=== PATIENT | female | born 1935 | race Caucasian/White ===

== ENCOUNTER 2016-06-05 14:59 | Emergency (ER) | payer OTHER ==
--- NOTE | 2016-06-05 16:16 | DIAGNOSTIC IMAGING REPORT ---
PROCEDURE: CT HEAD WITHOUT CONTRAST INDICATION: SYNCOPE TECHNIQUE: Axial CT images were acquired through the head. Coronal and sagittal reformations were created. COMPARISON: None. FINDINGS: No intracranial hemorrhage or extraaxial fluid collections. Ventricles are normal in size, shape and position. There is no mass, mass effect or midline shift. The farrell-white matter differentiation is normal. There is no edema. The calvarium is intact. The paranasal sinuses and mastoid air cells are normally aerated. The extracranial soft tissues and orbits are normal. IMPRESSION: 1. No CT evidence of acute intracranial process. All CT scans at this facility use dose modulation, iterative reconstruction, and/or weight-based dosing when appropriate to reduce radiation dose to as low as reasonably achievable.
--- NOTE | 2016-06-05 16:17 | DIAGNOSTIC IMAGING REPORT ---
PROCEDURE: XR CHEST 1 VIEW INDICATION: SYNCOPE TECHNIQUE: Portable AP view 03:30 p.m. COMPARISON: Chest 06/22/2008 FINDINGS: Lungs are clear. Heart and mediastinum are normal. Thorax is normal. IMPRESSION: 1. No change, no acute disease
--- NOTE | 2016-06-05 18:28 | ED NURSING NOTES ---
Clinical Report - Nurses [facility] [address] [place] [address] 06/05/2016 15:00 Patient: SHIKHA WHITE TRIAGE Triage time 15:13. Acuity: LEVEL 3. Chief Complaint: SYNCOPE and (Pt found herself on the garage concrete floor, thinks she laid there for 7 hours, was able to get up, then went to bed on . night, decided to be seen today, it has been 1.5 days ago). Alert. No acute distress. SEPSIS SCREEN: Sepsis Screen. Negative (no infection suspected/documented). ANGEL LUIS COMA SCORE: Angel Luis Coma Scale: 15- eyes open spontaneously (4); best verbal response- oriented x 4 (5); best motor response- obeys commands (6). --15:29 Gail Mckinney R.N. 15:11 06/05/16. BP: 184/93. HR: 81. RR: 18. O2 saturation: 97%. Temp: 98 F. Pain level now: 06/17. --15:29 Gail Mckinney R.N. 15:10. --15:35 Gail Mckinney R.N. Weight: 83.9 kg stated. Height/Length: 66.5 inches Per Patient. BMI: 29.4. --15:15 Gail Mckinney R.N. Medications Verapamil HCl Oral 120 mg, 2x a day. --15:19 Gail Mckinney R.N. Trimaterene doesnt know dose, daily. --15:25 Gail Mckinney R.N. Simvastatin Oral (Tablet 10 mg) 1 tablet, daily. --15:25 Gail Mckinney R.N. Fluticasone Propionate Nasal (Suspension 50 mcg/act) 1 spray each nare, BID. --15:26 Gail Mckinney R.N. Loratadine Oral 10 mg, daily as needed. --15:27 Mckinney, Gail, R.N. PreserVision AREDS 2 Oral. --15:28 Gail Mckinney R.N. Meloxicam Oral. --15:28 Gail Mckinney R.N. Chlorthalidone Oral (Tablet 25 mg) 1 tablet, BID. --15:28 Gail Mckinney R.N. Vitamin D Oral. Vitamins/Minerals Oral. --15:29 Gail Mckinney R.N. Allergies LIsinopril. --15:16 Gail Mckinney R.N. History Arrived by private vehicle. Historian: patient. Accompanied by daughter. Primary physician (matilda). This started 1 1/2 days ago, on night. --15:29 Gail Mckinney R.N. SOCIAL HX: Former smoker. No alcohol use or drug use. FUNCTIONAL ASSESSMENT: Functional assessment: no impairments noted. FALL RISK ASSESSMENT: Fall risk assessment completed; pt states she has fallen 4 times this year. --15:33 Gail Mckinney R.N. PAST MEDICAL HX: ( Pt stopped smoking at age 21). SOCIAL HX: Alcohol use; consumes one glass of wine occasionally. --15:33 Gail Mckinney R.N. ( FAST EXAM NEGATIVE ON ARRIVAL TO ADMITTING DESK). --15:35 Gail Mckinney R.N. PROBLEMS: Dupuytrens disease. Hypertension. Hypercholesterolemia. Allergic Rhinitis. --15:15 Gail Mckinney R.N. ADDITIONAL SURGERIES: Hands and feet. Knee Surgery. --15:15 Gail Mckinney R.N. Interventions ID and allergy band on patient. To room. --15:29 Gail Mckinney R.N. NURSING PROGRESS NOTES 15:24 06/05/2016 Site #1 started via IV in the right forearm with an 20g angiocath, with aseptic technique and good blood return; one attempt. Blood drawn: rainbow set. Labeled in the presence of the patient and sent to the lab. Saline lock flushed with 10 mL saline. --15:34 Gail Mckinney R.N. 15:34 06/05/16. court monitor, pulse oximeter and NIBP monitor placed on patient; cardiac/vascular sonographer- Lead II and V1; monitor alarms on. Head of bed elevated. Patient identifiers checked. Call light placed in reach. Bed placed in lowest position. Patient ready for evaluation- chart flagged and ED physician notified. --15:34 Gail Mckinney R.N. 15:34 06/05/16. Patient transported to [place]. --15:34 Gail Mckinney R.N. Care transferred and report given (to NICKI Peralta). --15:41 Gail Mckinney R.N. 15:46 06/05/2016 Started bag #1 1000 mL IV Fluids IV NS (Saline); bolus of 500 mL over 30 minute(s) then at 125 mL/hr over 4 hour(s) via site #1 via IV pump. Allergies verified and confirmed 5 rights. IV patency established. IV site checked: no pain, redness, or swelling. IV flushed thoroughly pre- and post-medication administration. --15:46 Kathryn Wren R.N. 15:57 06/05/16. BP: 172/81 (regular adult cuff) taken on the left arm, while lying. HR: 77. RR: 18. O2 saturation: 99% on nasal cannula at 2 liters/minute. --15:57 Kathryn Wren R.N. 15:57 06/05/16. BP: 143/87 (regular adult cuff) taken on the left arm, while sitting. HR: 84. RR: 20. O2 saturation: 100% on nasal cannula at 2 liters/minute. --15:58 Kathryn Wren R.N. 15:58 06/05/16. BP: 151/78 (regular adult cuff) taken on the left arm, while standing. HR: 89. RR: 20. O2 saturation: 100% on nasal cannula at 2 liters/minute. --15:58 Kathryn Wren R.N. 16:08 06/05/16. Assisted patient to bedside commode and back to bed; tolerated well. Checked patient name and birthdate: patient confirmed. Clean catch urine collected with return of yellow-colored clear urine; sample sent to lab for urinalysis. Specimen labeled in the presence of the patient. --16:08 Kathryn Wren R.N. 17:11 06/05/16. BP: 175/89. HR: 80. RR: 18. O2 saturation: 99% on room air. --17:11 Kathryn Wren R.N. 18:09 06/05/2016 IV Fluids IV NS Discontinued: bag #1 discontinued upon discharge. Total amount infused: 700 mL. IV patency established. IV site checked: no pain, redness, or swelling. IV flushed thoroughly. --18:09 Kathryn Wren R.N. DISPOSITION / DISCHARGE 18:04 06/05/16. BP: 161/84. HR: 83. RR: 14. O2 saturation: 100% on nasal cannula at 2 liters/minute. Temp: 98.4 F (oral). --18:05 Kathryn Wren R.N. Departure time: 18:Jun 05 2016. Condition at departure: improved and stable. No learning barriers present. Discharge instructions provided and reviewed with the patient. Patient verbalized understanding. Written instructions provided in Moldovan. The patient was discharged by the physician. She was discharged home and accompanied by family. She left the Emergency Department in a wheelchair and via private vehicle. Family member driving. --14:37 Kathryn Wren R.N. 18:30 06/05/2016 Site #1 removed upon discharge. Catheter intact. Manual pressure and bandage applied. --14:38 Kathryn Wren R.N. Locked/Released at 06/06/2016 14:38 by Kathryn Wren R.N.
--- NOTE | 2016-06-05 18:28 | ED ORDER SUMMARY ---
..... Patient: SHIKHA WHITE OrderSheet [facility] VisitID: [id number] [address] [place] [address] 81y, F Registration Date/Time: 06/05/2016 ORDER SHEET Weight: 83.9 kg (stated) Allergies: LIsinopril GENERAL ORDERS: Chest 1V Urgent (15:06/05/2016 Irineo ABERNATHY) (Ack 15:32 Placido Diaz) (16:21 MCampbell) Mitten Stitcher (Continuous) (15:06/05/2016 Irineo ABERNATHY) (15:26 MWinterer R.N.) CT Head wo Cont Urgent (15:06/05/2016 Irineo ABERNATHY) (Ack 15:32 Placido Diaz) (15:45 MWinterer R.N.) CBC w Diff Urgent (15:06/05/2016 Irineo ABERNATHY) (Ack 15:32 Placido iDaz) (15:34 LSullivan R.N.) CMP Urgent (15:06/05/2016 Irineo ABERNATHY) (Ack 15:32 Placido Diaz) (15:34 LSullivan R.N.) UA-Culture if indicated Urgent (15:06/05/2016 Irineo ABERNATHY) (Ack 15:32 Placido Diaz) (16:08 MWinterer R.N.) PT with INR Urgent (15:06/05/2016 Irineo ABERNATHY) (Ack 15:32 Placido Diaz) (15:34 LSullivan R.N.) PTT Urgent (15:06/05/2016 Irineo ABERNATHY) (Ack 15:32 Placido Diaz) (15:34 LSullivan R.N.) Amylase Urgent (15:06/05/2016 Irineo ABERNATHY) (Ack 15:32 Placido Diaz) (15:34 LSullivan R.N.) Lipase Urgent (15:06/05/2016 Irineo ABERNATHY) (Ack 15:32 Placido Diaz) (15:34 LSullivan R.N.) BNP Urgent (15:06/05/2016 Irineo ABERNATHY) (Ack 15:32 IJurca ER Tech1) (15:34 LSullivan R.N.) CPK Urgent (15:24 06/05/2016 Irineo ABERNATHY) (Ack 15:32 Placido ER Tech1) (15:34 LSullivan R.N.) Troponin-I Urgent (15:24 06/05/2016 Irineo ABERNATHY) (Ack 15:32 Placido ER Tech1) (15:34 LSullivan R.N.) EKG - ER Stat (15:24 06/05/2016 Irineo ABERNATHY) (Ack 15:32 Placido ER Tech1) (15:48 MWinterer R.N.) Vitals - Orthostatic (15:25 06/05/2016 Irineo ABERNATHY) (Ack 15:32 ANNABELLEurcricha ER Tech1) (15:58 MWinterer R.N.) TSH Urgent (16:52 06/05/2016 Irineo ABERNATHY) (Ack 16:53 ANNABELLEurca ER Tech1) (17:03 MWinterer R.N.) MEDICATION ORDERS: IV FLUIDS: IV NS : initial bolus 500 mL (1000 mL/hr), then 125 mL/hr for 4h (NOW); Urgent (15:23 06/05/2016 Irineo ABERNATHY) (Ack 15:26 MWinterer R.N.) (15:46 MWinterer R.N.) ORDER SHEET NOTES: [Electronically signed by Mannie Palma MD (19:04 06/05/2016)] [Electronically signed by Kathryn Wren R.N. (14:38 06/06/2016)] [Electronically locked/signed by Kathryn Wren R.N. (14:38 06/06/2016)]
--- NOTE | 2016-06-05 18:28 | ED ORDER SUMMARY ---
..... Patient: SHIKHA WHITE OrderSheet [facility] VisitID: [id number] [address] [place] [address] 81y, F Registration Date/Time: 06/05/2016 ORDER SHEET Weight: 83.9 kg (stated) Allergies: LIsinopril GENERAL ORDERS: Chest 1V Urgent (15:06/05/2016 Irineo ABERNATHY) (Ack 15:32 Placido Diaz) (16:21 MCampbell) Tafe Registrar (Continuous) (15:06/05/2016 Irineo ABERNATHY) (15:26 MWinterer R.N.) CT Head wo Cont Urgent (15:06/05/2016 Irineo ABERNATHY) (Ack 15:32 Placido Diaz) (15:45 MWinterer R.N.) CBC w Diff Urgent (15:06/05/2016 Irineo ABERNATHY) (Ack 15:32 Placido Diaz) (15:34 LSullivan R.N.) CMP Urgent (15:06/05/2016 Irineo ABERNATHY) (Ack 15:32 Placido Diaz) (15:34 LSullivan R.N.) UA-Culture if indicated Urgent (15:06/05/2016 Irineo ABERNATHY) (Ack 15:32 Placido Diaz) (16:08 MWinterer R.N.) PT with INR Urgent (15:06/05/2016 Irineo ABERNATHY) (Ack 15:32 Placido Diaz) (15:34 LSullivan R.N.) PTT Urgent (15:06/05/2016 Irineo ABERNATHY) (Ack 15:32 Placido Diaz) (15:34 LSullivan R.N.) Amylase Urgent (15:06/05/2016 Irineo ABERNATHY) (Ack 15:32 Placido Diaz) (15:34 LSullivan R.N.) Lipase Urgent (15:06/05/2016 Irineo ABERNATHY) (Ack 15:32 Placido Diaz) (15:34 LSullivan R.N.) BNP Urgent (15:06/05/2016 Irineo ABERNATHY) (Ack 15:32 IJurca ER Tech1) (15:34 LSullivan R.N.) CPK Urgent (15:24 06/05/2016 Irineo ABERNATHY) (Ack 15:32 Placido ER Tech1) (15:34 LSullivan R.N.) Troponin-I Urgent (15:24 06/05/2016 Irineo ABERNATHY) (Ack 15:32 Placido ER Tech1) (15:34 LSullivan R.N.) EKG - ER Stat (15:24 06/05/2016 Irineo ABERNATHY) (Ack 15:32 Placido ER Tech1) (15:48 MWinterer R.N.) Vitals - Orthostatic (15:25 06/05/2016 Irineo ABERNATHY) (Ack 15:32 ANNABELLEurcricha ER Tech1) (15:58 MWinterer R.N.) TSH Urgent (16:52 06/05/2016 Irineo ABERNATHY) (Ack 16:53 ANNABELLEurca ER Tech1) (17:03 MWinterer R.N.) MEDICATION ORDERS: IV FLUIDS: IV NS : initial bolus 500 mL (1000 mL/hr), then 125 mL/hr for 4h (NOW); Urgent (15:23 06/05/2016 Irineo ABERNATHY) (Ack 15:26 MWinterer R.N.) (15:46 MWinterer R.N.) ORDER SHEET NOTES: [Electronically signed by Mannie Palma MD (19:04 06/05/2016)] [Electronically signed by Kathryn Wren R.N. (14:38 06/06/2016)] [Electronically locked/signed by Kathryn Wren R.N. (14:38 06/06/2016)]
--- NOTE | 2016-06-05 18:28 | ED CLINICAL REPORT ---
Clinical Report - Physicians/Mid Levels [facility] [address] [place] [address] 06/05/2016 15:00 Patient: SHIKHA WHITE Time Seen: 15:22. Arrived- By private vehicle. Historian- patient. HISTORY OF PRESENT ILLNESS Chief Complaint: FALL. Location of injuries- right elbow (buttocks). The injury occurred 2 days ago. Occurred at home. Fell while standing and landed on a concrete surface. The patient complains of mild pain. No blow to the head or neck pain. The patient had loss of consciousness. (she is uncertain). REVIEW OF SYSTEMS The patient has had chills (when she was on the garage floor and through the morning after). No fever, calf pain, chest pain, cough or difficulty breathing. No pedal edema, palpitations, abdominal pain, black stools or bloody stools. No constipation, diarrhea, vomiting or urinary problems. The patient has had nausea. All systems otherwise negative, except as recorded above. PAST HISTORY PCP - Tamara. SOCIAL HISTORY Former smoker. No alcohol use or drug use. Is a local resident. She lives alone. FAMILY HISTORY Denies family medical history. ADDITIONAL NOTES The nursing notes have been reviewed. PHYSICAL EXAM Vital Signs: 06/05/2016 15:11 BP: 184/93. HR: 81. RR: 18. O2 saturation: 97%. Temp: 98 F. Pain level now: 5/10. Have been reviewed. Appearance: Alert. Oriented X3. No acute distress. Head: Head non-tender. No swelling of head. Eyes: Pupils equal, round and reactive to light. EOM intact. ENT: No dental injury. Pharynx normal. Neck: Painless ROM. Non-tender. No vertebral tenderness. CVS: Heart sounds normal. Respiratory: Breath sounds normal. Abdomen: No visible injury. Soft and nontender. Bowel sounds normal. No organomegaly. No mass. Back: No tenderness. ROM normal. Skin: The patient has multiple small superficial abrasions on the right elbow (bilateral buttocks). Extremities: Right elbow: small abrasion. Pelvis stable. Extremities atraumatic. No lower extremity edema. Neuro: Oriented X 3. No motor deficit. No sensory deficit. LABS, X-RAYS, AND EKG EKG: Normal sinus rhythm. Rate: 78. LBBB. Left axis deviation. EKG unchanged when compared with prior EKG. (22 Jun 2008). The study has been independently viewed by me. Chest X-ray: (PROCEDURE: XR CHEST 1 VIEW INDICATION: SYNCOPE TECHNIQUE: Portable AP view 03:30 p.m. COMPARISON: Chest 06/22/2008 FINDINGS: Lungs are clear. Heart and mediastinum are normal. Thorax is normal. IMPRESSION: 1. No change, no acute disease). The X-rays were interpreted by the radiologist and contemporaneously by me. CT Head: (IMPRESSION: 1. No CT evidence of acute intracranial process.). The study was interpreted by the radiologist and contemporaneously by me. Laboratory Tests: UA-Culture if indicated: (ELVIS: 06/05/2016 16:00) ( [facility] 06/05/2016 16:23) Final results Test Result Flag Units (Reference) URINE COLOR YELLOW URINE APPEARANCE CLEAR URINE GLUCOSE NEGATIVE (NEGATIVE) URINE BILIRUBIN NEGATIVE (NEGATIVE) URINE KETONE NEGATIVE (NEGATIVE) URINE SPECIFIC GRAVITY 1.020 (1.010-1.030) URINE PH 6.0 (5.0-8.0) URINE PROTEIN NEGATIVE (NEGATIVE) URINE UROBILINOGEN 0.2 EU/dL (0.2-1.0) URINE NITRITE NEGATIVE (NEGATIVE) URINE BLOOD NEGATIVE (NEGATIVE) URINE LEUK ESTERASE TRACE (NEGATIVE) URINE RBC NONE SEEN rbc/hpf (0-1) URINE WBC 5-10 wbc/hpf (0-1) URINE EPITHELIAL CELLS 5-10 EPI/hpf (0-5) URINE BACTERIA FEW (1+) (NONE SEEN) URINE COMMENT CULTURE INDICATED URINE CULTURES ARE SET-UP BASED ON THE FOLLOWING CRITERIA:POSITIVE NITRITEPOSITIVE LEUKOCYTE ESTERASEGREATER THAN 10 WHITE BLOOD CELLSMODERATE (2+) OR GREATER BACTERIA CBC w Diff: (ELVIS: 06/05/2016 15:10) ( [facility] 06/05/2016 15:34) Final results Test Result Flag Units (Reference) WHITE BLOOD COUNT 13.6 H K/uL (4.5-11.5) RED BLOOD COUNT 4.77 M/uL (4.00-5.20) HEMOGLOBIN 14.4 gm/dL (12.0-16.0) HEMATOCRIT 43.3 % (36.0-46.0) MEAN CELL VOLUME 91 fL (80-100) MEAN CORPUSCULAR HGB 30 pg (26-34) MEAN CORPUSCULAR HGB CONC 33 g/dL (31-37) RED CELL DISTRIBUTION WIDTH 13.4 % (11.6-14.8) PLATELET COUNT 232 K/uL (150-400) NEUTROPHIL % 79.4 H % (50-75) LYMPH % 13.1 L % (25-40) MONO % 7.2 % (3-14) EOSINOPHIL % 0.2 % (0-4) BASOPHIL % 0.1 % (0-2) PT with INR: (ELVIS: 06/05/2016 15:10) ( [facility] 06/05/2016 15:57) Final results Test Result Flag Units (Reference) INR 0.9 (0.8-1.2) Low Intensity Therapy: INR 1.5-2.0 PT range 18.5-23.1Mod.Intensity Therapy: INR 2.0-3.0 PT range 23.1-31.5High Intensity Therapy: INR 2.5-3.5 PT range 27.4-35.5High Intensity Therapy 2: INR 3.0-4.0 PT range 31.5-39.3 APTT 29 SECONDS (24-34) BNP: (ELVIS: 06/05/2016 15:10) ( [facility] 06/05/2016 15:58) Final results Test Result Flag Units (Reference) B-TYPE NATRIURETIC PEPTIDE 48.1 pg/ml (5-100) CMP: (ELVIS: 06/05/2016 15:10) ( [facility] 06/05/2016 16:29) Final results Test Result Flag Units (Reference) GLUCOSE 125 H mg/dL (70-110) BUN 22 H mg/dL (7-18) CREATININE 0.9 mg/dL (0.6-1.3) Estimated GFR >60 mL/min Estimated GFR- >60 mL/min Note: Persistent reduction over 3 months in eGFR<60 mL/min/1.73 m2 defines CKD. Patients with eGFR values>=60 mL/min/1.73 m2 may also have CKD if evidence ofpersistent proteinuria. Additional information may be foundat www.kidney.org. SODIUM 142 mmol/L (136-145) POTASSIUM 3.9 mmol/L (3.5-5.1) CHLORIDE 103 mmol/L (98-107) CARBON DIOXIDE 28 mmol/L (21-32) CALCIUM 9.1 mg/dL (8.5-10.1) TOTAL PROTEIN 7.6 g/dL (6.4-8.2) ALBUMIN 3.5 g/dL (3.3-5.0) BILIRUBIN, TOTAL 0.6 mg/dL (0.0-1.0) ALKALINE PHOSPHATASE 84 U/L (46-116) AST (SGOT) 73 H U/L (15-37) ALT (SGPT) 44 U/L (12-78) LIPASE 133 U/L (73-393) AMYLASE 69 U/L (25-115) CPK 1883 H U/L (24-260) TROPONIN I <0.05 ng/mL (0.00-1.5) TROPONIN REFERENCE RANGE:<0.1 NEGATIVE0.1-1.5 INDETERMINANT>1.5 POSITIVE CK-MB 7.6 H ng/mL (0.5-3.2) %CKMB 0.4 % (0.0-4.0) . PROGRESS AND PROCEDURES Course of Care: Patient is stable. Discussed case with on-call health care provider, (Yang). Reviewed test results and need for additional work-up. Agreed upon treatment plan and need for patient follow-up. Health care provider will see patient in office. Refers case to other health care provider. Patient/family counseled. Old medical records reviewed. Disposition: Discharged. Condition: stable. CLINICAL IMPRESSION Mild rhabdomyolysis Multiple superficial abrasions to the right and left buttocks and right elbow. Fall. INSTRUCTIONS (Keep your cell phone battery charged and keep the phone with you at all times until you're able to get a medical alert system as discussed.). Warnings: GENERAL WARNINGS: Return or contact your physician immediately if your condition worsens or changes unexpectedly, if not improving as expected, or if other problems arise. Your Current Medications: CONTINUE TAKING THE FOLLOWING MEDICATIONS: Chlorthalidone Oral : Tablet 25 mg, 1 tablet BID. Fluticasone Propionate Nasal : Suspension 50 mcg/act, 1 spray each nare BID. Understanding of the discharge instructions verbalized by patient and family. Follow-up with: Prakash Mcdonald MD, [facility], , [facility], [address] [place] [address] Follow up Wednesday as scheduled. Reason for referral: at noon to follow up on your recent fall. (Electronically signed by Mannie Palma MD 06/05/2016 19:04)
--- NOTE | 2016-06-05 18:28 | ED CLINICAL REPORT ---
Clinical Report - Physicians/Mid Levels [facility] [address] [place] [place] [address] 06/05/2016 15:00 Patient: SHIKHA WHITE Time Seen: 15:22. Arrived- By private vehicle. Historian- patient. HISTORY OF PRESENT ILLNESS Chief Complaint: FALL. Location of injuries- right elbow (buttocks). The injury occurred 2 days ago. Occurred at home. Fell while standing and landed on a concrete surface. The patient complains of mild pain. No blow to the head or neck pain. The patient had loss of consciousness. (she is uncertain). REVIEW OF SYSTEMS The patient has had chills (when she was on the garage floor and through the morning after). No fever, calf pain, chest pain, cough or difficulty breathing. No pedal edema, palpitations, abdominal pain, black stools or bloody stools. No constipation, diarrhea, vomiting or urinary problems. The patient has had nausea. All systems otherwise negative, except as recorded above. PAST HISTORY PCP - Tamara. SOCIAL HISTORY Former smoker. No alcohol use or drug use. Is a local resident. She lives alone. FAMILY HISTORY Denies family medical history. ADDITIONAL NOTES The nursing notes have been reviewed. PHYSICAL EXAM Vital Signs: 06/05/2016 15:11 BP: 184/93. HR: 81. RR: 18. O2 saturation: 97%. Temp: 98 F. Pain level now: 5/10. Have been reviewed. Appearance: Alert. Oriented X3. No acute distress. Head: Head non-tender. No swelling of head. Eyes: Pupils equal, round and reactive to light. EOM intact. ENT: No dental injury. Pharynx normal. Neck: Painless ROM. Non-tender. No vertebral tenderness. CVS: Heart sounds normal. Respiratory: Breath sounds normal. Abdomen: No visible injury. Soft and nontender. Bowel sounds normal. No organomegaly. No mass. Back: No tenderness. ROM normal. Skin: The patient has multiple small superficial abrasions on the right elbow (bilateral buttocks). Extremities: Right elbow: small abrasion. Pelvis stable. Extremities atraumatic. No lower extremity edema. Neuro: Oriented X 3. No motor deficit. No sensory deficit. LABS, X-RAYS, AND EKG EKG: Normal sinus rhythm. Rate: 78. LBBB. Left axis deviation. EKG unchanged when compared with prior EKG. (22 Jun 2008). The study has been independently viewed by me. Chest X-ray: (PROCEDURE: XR CHEST 1 VIEW INDICATION: SYNCOPE TECHNIQUE: Portable AP view 03:30 p.m. COMPARISON: Chest 06/22/2008 FINDINGS: Lungs are clear. Heart and mediastinum are normal. Thorax is normal. IMPRESSION: 1. No change, no acute disease). The X-rays were interpreted by the radiologist and contemporaneously by me. CT Head: (IMPRESSION: 1. No CT evidence of acute intracranial process.). The study was interpreted by the radiologist and contemporaneously by me. Laboratory Tests: UA-Culture if indicated: (ELVIS: 06/05/2016 16:00) ( [facility] 06/05/2016 16:23) Final results Test Result Flag Units (Reference) URINE COLOR YELLOW URINE APPEARANCE CLEAR URINE GLUCOSE NEGATIVE (NEGATIVE) URINE BILIRUBIN NEGATIVE (NEGATIVE) URINE KETONE NEGATIVE (NEGATIVE) URINE SPECIFIC GRAVITY 1.020 (1.010-1.030) URINE PH 6.0 (5.0-8.0) URINE PROTEIN NEGATIVE (NEGATIVE) URINE UROBILINOGEN 0.2 EU/dL (0.2-1.0) URINE NITRITE NEGATIVE (NEGATIVE) URINE BLOOD NEGATIVE (NEGATIVE) URINE LEUK ESTERASE TRACE (NEGATIVE) URINE RBC NONE SEEN rbc/hpf (0-1) URINE WBC 5-10 wbc/hpf (0-1) URINE EPITHELIAL CELLS 5-10 EPI/hpf (0-5) URINE BACTERIA FEW (1+) (NONE SEEN) URINE COMMENT CULTURE INDICATED URINE CULTURES ARE SET-UP BASED ON THE FOLLOWING CRITERIA:POSITIVE NITRITEPOSITIVE LEUKOCYTE ESTERASEGREATER THAN 10 WHITE BLOOD CELLSMODERATE (2+) OR GREATER BACTERIA CBC w Diff: (ELVIS: 06/05/2016 15:10) ( [facility] 06/05/2016 15:34) Final results Test Result Flag Units (Reference) WHITE BLOOD COUNT 13.6 H K/uL (4.5-11.5) RED BLOOD COUNT 4.77 M/uL (4.00-5.20) HEMOGLOBIN 14.4 gm/dL (12.0-16.0) HEMATOCRIT 43.3 % (36.0-46.0) MEAN CELL VOLUME 91 fL (80-100) MEAN CORPUSCULAR HGB 30 pg (26-34) MEAN CORPUSCULAR HGB CONC 33 g/dL (31-37) RED CELL DISTRIBUTION WIDTH 13.4 % (11.6-14.8) PLATELET COUNT 232 K/uL (150-400) NEUTROPHIL % 79.4 H % (50-75) LYMPH % 13.1 L % (25-40) MONO % 7.2 % (3-14) EOSINOPHIL % 0.2 % (0-4) BASOPHIL % 0.1 % (0-2) PT with INR: (ELVIS: 06/05/2016 15:10) ( [facility] 06/05/2016 15:57) Final results Test Result Flag Units (Reference) INR 0.9 (0.8-1.2) Low Intensity Therapy: INR 1.5-2.0 PT range 18.5-23.1Mod.Intensity Therapy: INR 2.0-3.0 PT range 23.1-31.5High Intensity Therapy: INR 2.5-3.5 PT range 27.4-35.5High Intensity Therapy 2: INR 3.0-4.0 PT range 31.5-39.3 APTT 29 SECONDS (24-34) BNP: (ELVIS: 06/05/2016 15:10) ( [facility] 06/05/2016 15:58) Final results Test Result Flag Units (Reference) B-TYPE NATRIURETIC PEPTIDE 48.1 pg/ml (5-100) CMP: (ELVIS: 06/05/2016 15:10) ( [facility] 06/05/2016 16:29) Final results Test Result Flag Units (Reference) GLUCOSE 125 H mg/dL (70-110) BUN 22 H mg/dL (7-18) CREATININE 0.9 mg/dL (0.6-1.3) Estimated GFR >60 mL/min Estimated GFR- >60 mL/min Note: Persistent reduction over 3 months in eGFR<60 mL/min/1.73 m2 defines CKD. Patients with eGFR values>=60 mL/min/1.73 m2 may also have CKD if evidence ofpersistent proteinuria. Additional information may be foundat [email or web address].org. SODIUM 142 mmol/L (136-145) POTASSIUM 3.9 mmol/L (3.5-5.1) CHLORIDE 103 mmol/L (98-107) CARBON DIOXIDE 28 mmol/L (21-32) CALCIUM 9.1 mg/dL (8.5-10.1) TOTAL PROTEIN 7.6 g/dL (6.4-8.2) ALBUMIN 3.5 g/dL (3.3-5.0) BILIRUBIN, TOTAL 0.6 mg/dL (0.0-1.0) ALKALINE PHOSPHATASE 84 U/L (46-116) AST (SGOT) 73 H U/L (15-37) ALT (SGPT) 44 U/L (12-78) LIPASE 133 U/L (73-393) AMYLASE 69 U/L (25-115) CPK 1883 H U/L (24-260) TROPONIN I <0.05 ng/mL (0.00-1.5) TROPONIN REFERENCE RANGE:<0.1 NEGATIVE0.1-1.5 INDETERMINANT>1.5 POSITIVE CK-MB 7.6 H ng/mL (0.5-3.2) %CKMB 0.4 % (0.0-4.0) . PROGRESS AND PROCEDURES Course of Care: Patient is stable. Discussed case with on-call health care provider, (Yang). Reviewed test results and need for additional work-up. Agreed upon treatment plan and need for patient follow-up. Health care provider will see patient in office. Refers case to other health care provider. Patient/family counseled. Old medical records reviewed. Disposition: Discharged. Condition: stable. CLINICAL IMPRESSION Mild rhabdomyolysis Multiple superficial abrasions to the right and left buttocks and right elbow. Fall. INSTRUCTIONS (Keep your cell phone battery charged and keep the phone with you at all times until you're able to get a medical alert system as discussed.). Warnings: GENERAL WARNINGS: Return or contact your physician immediately if your condition worsens or changes unexpectedly, if not improving as expected, or if other problems arise. Your Current Medications: CONTINUE TAKING THE FOLLOWING MEDICATIONS: Chlorthalidone Oral : Tablet 25 mg, 1 tablet BID. Fluticasone Propionate Nasal : Suspension 50 mcg/act, 1 spray each nare BID. Understanding of the discharge instructions verbalized by patient and family. Follow-up with: Prakash Mcdonald MD, [facility], , [facility], [address] [place] [address] Follow up Wednesday as scheduled. Reason for referral: at noon to follow up on your recent fall. (Electronically signed by Mannie Palma MD 06/05/2016 19:04)
--- NOTE | 2016-06-05 18:28 | ED NURSING NOTES ---
Clinical Report - Nurses [facility] [address] [place] [address] 06/05/2016 15:00 Patient: SHIKHA WHITE TRIAGE Triage time 15:13. Acuity: LEVEL 3. Chief Complaint: SYNCOPE and (Pt found herself on the garage concrete floor, thinks she laid there for 7 hours, was able to get up, then went to bed on . night, decided to be seen today, it has been 1.5 days ago). Alert. No acute distress. SEPSIS SCREEN: Sepsis Screen. Negative (no infection suspected/documented). ANGEL LUIS COMA SCORE: Angel Luis Coma Scale: 15- eyes open spontaneously (4); best verbal response- oriented x 4 (5); best motor response- obeys commands (6). --15:29 Gail Mckinney R.N. 15:11 06/05/16. BP: 184/93. HR: 81. RR: 18. O2 saturation: 97%. Temp: 98 F. Pain level now: 06/17. --15:29 Gail Mckinney R.N. 15:10. --15:35 Gail Mckinney R.N. Weight: 83.9 kg stated. Height/Length: 66.5 inches Per Patient. BMI: 29.4. --15:15 Gail Mckinney R.N. Medications Verapamil HCl Oral 120 mg, 2x a day. --15:19 Gail Mckinney R.N. Trimaterene doesnt know dose, daily. --15:25 Gail Mckinney R.N. Simvastatin Oral (Tablet 10 mg) 1 tablet, daily. --15:25 Gail Mckinney R.N. Fluticasone Propionate Nasal (Suspension 50 mcg/act) 1 spray each nare, BID. --15:26 Gail Mckinney R.N. Loratadine Oral 10 mg, daily as needed. --15:27 Mckinney, Gail, R.N. PreserVision AREDS 2 Oral. --15:28 Gail Mckinney R.N. Meloxicam Oral. --15:28 Gail Mckinney R.N. Chlorthalidone Oral (Tablet 25 mg) 1 tablet, BID. --15:28 Gail Mckinney R.N. Vitamin D Oral. Vitamins/Minerals Oral. --15:29 Gail Mckinney R.N. Allergies LIsinopril. --15:16 Gail Mckinney R.N. History Arrived by private vehicle. Historian: patient. Accompanied by daughter. Primary physician (matilda). This started 1 1/2 days ago, on night. --15:29 Gail Mckinney R.N. SOCIAL HX: Former smoker. No alcohol use or drug use. FUNCTIONAL ASSESSMENT: Functional assessment: no impairments noted. FALL RISK ASSESSMENT: Fall risk assessment completed; pt states she has fallen 4 times this year. --15:33 Gail Mckinney R.N. PAST MEDICAL HX: ( Pt stopped smoking at age 21). SOCIAL HX: Alcohol use; consumes one glass of wine occasionally. --15:33 Gail Mckinney R.N. ( FAST EXAM NEGATIVE ON ARRIVAL TO ADMITTING DESK). --15:35 Gail Mckinney R.N. PROBLEMS: Dupuytrens disease. Hypertension. Hypercholesterolemia. Allergic Rhinitis. --15:15 Gail Mckinney R.N. ADDITIONAL SURGERIES: Hands and feet. Knee Surgery. --15:15 Gail Mckinney R.N. Interventions ID and allergy band on patient. To room. --15:29 Gail Mckinney R.N. NURSING PROGRESS NOTES 15:24 06/05/2016 Site #1 started via IV in the right forearm with an 20g angiocath, with aseptic technique and good blood return; one attempt. Blood drawn: rainbow set. Labeled in the presence of the patient and sent to the lab. Saline lock flushed with 10 mL saline. --15:34 Gail Mckinney R.N. 15:34 06/05/16. bus monitor, pulse oximeter and NIBP monitor placed on patient; night monitor- Lead II and V1; monitor alarms on. Head of bed elevated. Patient identifiers checked. Call light placed in reach. Bed placed in lowest position. Patient ready for evaluation- chart flagged and ED physician notified. --15:34 Gail Mckinney R.N. 15:34 06/05/16. Patient transported to [place]. --15:34 Gail Mckinney R.N. Care transferred and report given (to NICKI Peralta). --15:41 Gail Mckinney R.N. 15:46 06/05/2016 Started bag #1 1000 mL IV Fluids IV NS (Saline); bolus of 500 mL over 30 minute(s) then at 125 mL/hr over 4 hour(s) via site #1 via IV pump. Allergies verified and confirmed 5 rights. IV patency established. IV site checked: no pain, redness, or swelling. IV flushed thoroughly pre- and post-medication administration. --15:46 Kathryn Wren R.N. 15:57 06/05/16. BP: 172/81 (regular adult cuff) taken on the left arm, while lying. HR: 77. RR: 18. O2 saturation: 99% on nasal cannula at 2 liters/minute. --15:57 Kathryn Wren R.N. 15:57 06/05/16. BP: 143/87 (regular adult cuff) taken on the left arm, while sitting. HR: 84. RR: 20. O2 saturation: 100% on nasal cannula at 2 liters/minute. --15:58 Kathryn Wren R.N. 15:58 06/05/16. BP: 151/78 (regular adult cuff) taken on the left arm, while standing. HR: 89. RR: 20. O2 saturation: 100% on nasal cannula at 2 liters/minute. --15:58 Kathryn Wren R.N. 16:08 06/05/16. Assisted patient to bedside commode and back to bed; tolerated well. Checked patient name and birthdate: patient confirmed. Clean catch urine collected with return of yellow-colored clear urine; sample sent to lab for urinalysis. Specimen labeled in the presence of the patient. --16:08 Kathryn Wren R.N. 17:11 06/05/16. BP: 175/89. HR: 80. RR: 18. O2 saturation: 99% on room air. --17:11 Kathryn Wren R.N. 18:09 06/05/2016 IV Fluids IV NS Discontinued: bag #1 discontinued upon discharge. Total amount infused: 700 mL. IV patency established. IV site checked: no pain, redness, or swelling. IV flushed thoroughly. --18:09 Kathryn Wren R.N. DISPOSITION / DISCHARGE 18:04 06/05/16. BP: 161/84. HR: 83. RR: 14. O2 saturation: 100% on nasal cannula at 2 liters/minute. Temp: 98.4 F (oral). --18:05 Kathryn Wren R.N. Departure time: 18:Jun 05 2016. Condition at departure: improved and stable. No learning barriers present. Discharge instructions provided and reviewed with the patient. Patient verbalized understanding. Written instructions provided in [place] Island[place]. The patient was discharged by the physician. She was discharged home and accompanied by family. She left the Emergency Department in a wheelchair and via private vehicle. Family member driving. --14:37 Kathryn Wren R.N. 18:30 06/05/2016 Site #1 removed upon discharge. Catheter intact. Manual pressure and bandage applied. --14:38 Kathryn Wren R.N. Locked/Released at 06/06/2016 14:38 by Kathryn Wren R.N.
--- NOTE | 2016-06-06 14:38 | ED DISCHARGE INSTRUCTIONS ---
Patient: SHIKHA WHITE General Instructions [facility] VisitID: [id number] [address] [id number] 81y, F Registration Date/Time: 06/05/2016 Mild rhabdomyolysis Multiple superficial abrasions to the right and left buttocks and right elbow. Fall. INSTRUCTIONS (Keep your cell phone battery charged and keep the phone with you at all times until you're able to get a medical alert system as discussed.). Warnings: GENERAL WARNINGS: Return or contact your physician immediately if your condition worsens or changes unexpectedly, if not improving as expected, or if other problems arise. Your Current Medications: CONTINUE TAKING THE FOLLOWING MEDICATIONS: Chlorthalidone Oral : Tablet 25 mg, 1 tablet BID. Fluticasone Propionate Nasal : Suspension 50 mcg/act, 1 spray each nare BID. Understanding of the discharge instructions verbalized by patient and family. Follow-up with: Prakash Mcdonald MD, [facility], , [facility], [address] [place] [address] Follow up Wednesday as scheduled. Reason for referral: at noon to follow up on your recent fall. ADDITIONAL INFORMATION Fall, Uncertain Cause You have had a fall today. but the cause of your fall is not certain. Falls can occur due to slipping, tripping or losing your balance. A fall can also occur from a fainting spell or seizure. Because the cause of your fall today is not certain, it is possible that a fainting spell or seizure was the cause. This means that it could happen again, without warning. If you fall again, without a cause, then you should return to this facility promptly to have further tests. Otherwise, follow up with your doctor as explained below. Home Care: 1) Rest today and resume your normal activities as soon as you are feeling back to normal. It is best to remain with someone who can check on you for the next 24 hours to watch for another episode of falling. 2) If you were injured during the fall, follow the advice from your doctor regarding care of your injury. 3) If you become light-headed or dizzy, lie down immediately or sit and lean forward with your head down. 4) As a precaution, do not drive a car or operate dangerous equipment, do not take a bath alone (use a shower instead) and do not swim alone until you see your doctor. A condition causing fainting or seizures must be ruled out before resuming these activities. 5)You may use acetaminophen (Tylenol) or ibuprofen (Motrin, Advil) to control pain, unless another pain medicine was prescribed. [ NOTE : If you have chronic liver or kidney disease or ever had a stomach ulcer or GI bleeding, talk with your doctor before using these medicines.] 6) Keep your appointments for any further testing that may have been scheduled for you. Follow Up: Unless, given other advice, call your doctor on the next office day to advise of your fall and to schedule an appointment. Get Prompt Medical Attention if any of the following occur: -- Another unexplained fall -- Dizziness, fainting or seizure -- Severe headache -- Chest pain or shortness of breath -- Palpitations (very rapid or very slow or irregular heart beat) -- Blood in vomit, stools (black or red color) -- Weakness of an arm or leg or one side of the face -- Difficulty with speech or vision Rhabdomyolysis Rhabdomyolysis (RM) is the breakdown of muscle tissue. When this occurs there is a release of toxic substances into the blood stream. The most common cause for this condition is injury to the muscle from trauma. The trauma may be due to a blunt injury (car and bike accidents, falls), electrical shock or schafer. Lying in one position for a long time (for example, unconscious from a drug or alcohol overdose), strenuous exertion (such as running a marathon), seizures and use of certain prescribed and recreational drugs can also cause RM. Severe RM can be fatal. It can cause fatal changes in body function including: Kidney failure Abnormalheart rhythm that can be fatal Excess bleeding due to changes in the bloods ability to form a clot Severe RM is a medical emergency and is treated in the hospital with large amounts of IV fluids to flush the toxins out of the body. Mild cases of RM may be treated in the emergency department and followed closely with a repeat exam and blood tests the next day. Home Care Rest for the next 24 hours. Avoid any strenuous activity. Drink extra fluids to stay well hydrated and to continue flushing toxins out of your system. Unless told otherwise, drink 3 quarts of clear fluids over the next 24 hours. You may use acetaminophen (Tylenol) or ibuprofen (Motrin, Advil) to control pain, unless another medicine was prescribed. [NOTE: If you have chronic liver or kidney disease or ever had a stomach ulcer or GI bleeding, talk with your doctor before using these medicines.] Follow Up with this facility, your doctor or as advised by our staff. Get Prompt Medical Attention if any of the following occur: Palpitations (rapid or irregular heartbeat) Dizziness, weakness or fainting Tea- or cola-colored urine or decreased urination Swelling, pain or numbness in the arm or leg muscles You have been given the following additional information: Fall, Uncertain Cause Rhabdomyolysis (Electronically signed by Mannie Palma MD 06/05/2016 19:04)
--- NOTE | 2016-06-06 14:38 | ED MAR SUMMARY ---
..... Medication Administration Record [facility] [address] [place] [address] Patient: SHIKHA WHITE Visit ID: [id number] 81y, F Weight: 83.9 kg Height/Length: 66.5 in BMI: 29.4 ALLERGIES: LIsinopril Start 15:46 06/05/2016 Kathryn Wren RElisha, Stop 18:09 06/05/2016 Kathryn Wren R.N. Medication Administered: IV NS (SALINE), Dose: IV Fluids over 4 hour(s), Rate: 125 mL/hr, Bolus: 500 mL over 30 minute(s), Dispensed: 1000 mL bag, Site: #1 right forearm. Medication Ordered: IV NS : initial bolus 500 mL (1000 mL/hr), then 125 mL/hr for 4h (NOW); Urgent.
--- NOTE | 2016-06-06 14:38 | ED MAR SUMMARY ---
..... Medication Administration Record [facility] [address] [place] [address] Patient: SHIKHA WHITE Visit ID: [id number] 81y, F Weight: 83.9 kg Height/Length: 66.5 in BMI: 29.4 ALLERGIES: LIsinopril Start 15:46 06/05/2016 Kathryn Wren RElisha, Stop 18:09 06/05/2016 Kathryn Wren R.N. Medication Administered: IV NS (SALINE), Dose: IV Fluids over 4 hour(s), Rate: 125 mL/hr, Bolus: 500 mL over 30 minute(s), Dispensed: 1000 mL bag, Site: #1 right forearm. Medication Ordered: IV NS : initial bolus 500 mL (1000 mL/hr), then 125 mL/hr for 4h (NOW); Urgent.
--- NOTE | 2016-06-06 14:38 | ED MED RECONCILIATION SUMMARY ---
Patient: SHIKHA WHITE Medication Reconciliation Report [facility] VisitID: [id number] [address] [place] [address] 81y, F Registration Date/Time: 06/05/2016 Weight: 83.9 kg Height/Length: 60 in. BMI: 29.4 ALLERGIES: LIsinopril The patient's Home Medications are listed below: CONTINUE TAKING THE FOLLOWING MEDICATIONS: Chlorthalidone Oral (25 mg) 1 tablet, BID Fluticasone Propionate Nasal (50 mcg/act) 1 spray each nare, BID THE FOLLOWING MEDICATIONS NEED TO BE RECONCILED: Loratadine Oral 10 mg, daily Meloxicam Oral PreserVision AREDS 2 Oral Simvastatin Oral (10 mg) 1 tablet, daily Trimaterene doesnt know dose, daily Verapamil HCl Oral 120 mg, 2x a day Vitamin D Oral Vitamins/Minerals Oral The source(s) of the original Home Medication information: Not obtained. The following Medications were given to the patient in the Emergency Department: IV NS IV Fluids bolus 500 mL over 30 minute(s), then 125 mL/hr, administered: 06/05/2016 3:46:00 PM The following Medications were prescribed to the patient: None.
--- NOTE | 2016-06-06 14:38 | ED MED RECONCILIATION SUMMARY ---
Patient: SHIKHA WHITE Medication Reconciliation Report [facility] VisitID: [id number] [address] [place] [address] 81y, F Registration Date/Time: 06/05/2016 Weight: 83.9 kg Height/Length: 60 in. BMI: 29.4 ALLERGIES: LIsinopril The patient's Home Medications are listed below: CONTINUE TAKING THE FOLLOWING MEDICATIONS: Chlorthalidone Oral (25 mg) 1 tablet, BID Fluticasone Propionate Nasal (50 mcg/act) 1 spray each nare, BID THE FOLLOWING MEDICATIONS NEED TO BE RECONCILED: Loratadine Oral 10 mg, daily Meloxicam Oral PreserVision AREDS 2 Oral Simvastatin Oral (10 mg) 1 tablet, daily Trimaterene doesnt know dose, daily Verapamil HCl Oral 120 mg, 2x a day Vitamin D Oral Vitamins/Minerals Oral The source(s) of the original Home Medication information: Not obtained. The following Medications were given to the patient in the Emergency Department: IV NS IV Fluids bolus 500 mL over 30 minute(s), then 125 mL/hr, administered: 06/05/2016 3:46:00 PM The following Medications were prescribed to the patient: None.
== END 2016-06-05 18:30 | disposition home or self-care (01) ==
LOC: ED SRH 14:59
DX: S50.311A Abrasion of right elbow, initial encounter (principal); S30.810A Abrasion of lower back and pelvis, initial encounter; M62.82 Rhabdomyolysis; W19.XXXA Unspecified fall, initial encounter; Y93.9 Activity, unspecified; Y92.009 Unspecified place in unspecified non-institutional (private) residence as the place of occurrence of the external cause; Y99.9 Unspecified external cause status; I10 Essential (primary) hypertension; Z87.891 Personal history of nicotine dependence; Z79.899 Other long term (current) drug therapy
CPT/HCPCS: 90004; 90100; 90469; 90616; 90617; 91320; 92235; 92530; 92610; 93140; 94001; 94060; 95059

== ENCOUNTER 2016-06-15 12:53 | Outpatient (CLI) | payer OTHER ==
--- NOTE | 2016-06-15 16:41 | DIAGNOSTIC IMAGING REPORT ---
PROCEDURE: MR LUMBAR SPINE W/O CONTRAST INDICATION: LEG PAIN, BILATERAL SPINAL STENOSIS, LUMBAR TECHNIQUE: T1, T2, and STIR sagittal sequences. T2 and T1 axial sequences. COMPARISON: 05/29/2009 FINDINGS: Alignment and curvature: Grade 1 anterolisthesis L3-4, new since the prior study. Vertebral bodies: Endplate irregularity and mixed type 1 and 2 modic changes at the L4-5 level and moderate type 2 modic changes at the L5-S1 disc level. Schmorl's node along the right aspect of the T12 superior endplate. Disc spaces: Severe disc height loss L4-5 and L5-S1, L4-5 mildly progressed since the previous study, L5-S1 chronic. Mild disc height loss L2-3 and L3-4. Spinal canal: Conus terminates at the L2 level. Distal cord is normal. Paraspinal soft tissues: Small bilateral renal cysts. No suspicious mass. L1-2: Normal disc. Mild facet arthropathy. L2-3: Mild broad-based right foraminal disc herniation superimposed on minor diffuse circumferential disc bulge. No significant right foraminal narrowing. Mild facet and ligamentum flavum hypertrophy. L3-4: Moderate facet arthropathy, similar compared to the prior study. Minor circumferential disc bulge. Mild central canal narrowing. Minor bilateral foraminal narrowing, slightly worse compared to the prior study. No significant nerve root impingement. L4-5: Mild facet hypertrophy and ligamentum flavum hypertrophy. Mild circumferential disc bulge extending into both neural foramen. Mild bilateral foraminal narrowing without significant change since the previous study. Mild to moderate central canal narrowing. L5-S1: Mild circumferential disc osteophyte complex extending in towards the right neural foramen, stable compared to the previous study. There is slight encroachment on the right lateral recess and minor right neural foraminal narrowing, stable. IMPRESSION: 1. There is slight progression of L4-5 disc height loss without new foraminal or central canal stenosis. 2. Development of grade 1 anterolisthesis L3 on L4. 3. Stable mild moderate central canal narrowing L3-4 and L4-5. 4. Etiology of lower extremity radiculopathy is not evident on this study.
== END 2016-06-15 23:00 ==
LOC: MRI SRH 12:53
DX: Z91.81 History of falling (principal); M48.06 Spinal stenosis, lumbar region; R29.890 Loss of height